=== PATIENT | female | born 1970 | race African-American/Black ===

== ENCOUNTER 2017-03-11 16:40 | Emergency (ER) | payer OTHER ==
--- NOTE | 2017-03-11 17:01 | PDOC ---
Rapid Medical Evaluation Time Seen by Provider: 03/11/17 16:55 Medical Evaluation: Allergies Allergy/AdvReac Type Severity Reaction Status Date / Time No Known Allergies Allergy Verified 10/19/15 11:03 03/11/17 16:55 The patient presents with a chief complaint of: Vaginal itching. Requesting STD testing after having unprotected sex. Had HIV testing last week which was negative I have performed a brief in-person evaluation of this patient; Pertinent physical exam findings: Stable vitals I have ordered the following: GC/Chlamydia, RPR, UA, UC, Urine preg The patient will proceed to the ED for further evaluation.
[2017-03-11 17:10] VITALS: BP 153/99; PULSE 81; TEMP 98.4; BMI 27.4
[2017-03-11 18:04] LABS: HCG,QUALITATIVE URINE NEGATIVE
[2017-03-11 18:06] LABS: URINE APPEARANCE CLOUDY; URINE BILIRUBIN NEGATIVE (NEGATIVE); URINE BLOOD NEGATIVE (NEGATIVE); URINE COLOR YELLOW; URINE GLUCOSE (UA) NEGATIVE (NEGATIVE); URINE KETONE NEGATIVE (NEGATIVE); URINE LEUK ESTERASE NEGATIVE (NEGATIVE); URINE NITRITE NEGATIVE (NEGATIVE); URINE PROTEIN NEGATIVE (NEGATIVE); URINE UROBILINOGEN NEGATIVE mg/dL (0.2-1.0)
--- NOTE | 2017-03-11 18:26 | PDOC ---
History of Present Illness - General Chief Complaint: Vaginal Sxs Stated Complaint: LT HAND PAIN Time Seen by Provider: 03/11/17 16:55 History Source: Patient Exam Limitations: No Limitations - History of Present Illness Initial Comments: CHIEF COMPLAINT: 46 y/o afebrile female c/o vaginal itching x 5 days. HISTORY OF PRESENT ILLNESS: The patient states her and her boyfriend of 8 months had sexual intercourse this past weekend after he had been away. The symptoms started after that and she admits the condom broke. She is concerned for STDs and would like to be treated. She denies f/c, abnormal vaginal discharge, dysuria, hematuria, abd pain, pelvic pain. Vital signs on arrival are within normal limits. REVIEW OF SYSTEMS: GENERAL/CONSTITUTIONAL: No fever/chills. No weakness. No weight change. GASTROINTESTINAL: No abd pain, pelvic pain, nausea, vomiting, diarrhea. GENITOURINARY: No dysuria, frequency, or change in urination. VAGINAL: vaginal itching MUSCULOSKELETAL: No joint or muscle swelling or pain. No neck or back pain. SKIN: No rash or easy bruising. PHYSICAL EXAM: GENERAL: The patient is awake, alert, and fully oriented, in no acute distress. ABDOMEN: Soft, non-distended, non-tender even to deep palpation, no hepatomegaly or splenomegaly, no masses. VAGINAL: Minimal amount of white curd like discharge seen in the vaginal canal. No external lesions or rashes SKIN: Warm, dry, normal turgor, no rashes or lesions noted. Past History - Past Medical History Allergies/Adverse Reactions: Allergies Allergy/AdvReac Type Severity Reaction Status Date / Time No Known Allergies Allergy Verified 03/11/17 16:59 Home Medications: Ambulatory Orders Miconazole Nitrate [Miconazole 7] 100 mg VG DAILY #7 supp.vag 03/11/17 Anemia: No Asthma: No Cancer: No Cardiac Disorders: No CVA: No COPD: No CHF: No DVT: No Dementia: No Diabetes: No GI Disorders: No Disorders: No HTN: No Hypercholesterolemia: No Liver Disease: No Seizures: No Thyroid Disease: No Other medical history: AV SHUNT (HYDROCEPHALUS) - Surgical History Abdominal Surgery: No Appendectomy: No Cardiac Surgery: No Cholecystectomy: No Lung Surgery: No Neurologic Surgery: Yes (SHUNT) Orthopedic Surgery: No - Immunization History Immunization Up to Date: Yes - Suicide/Smoking/Psychosocial Hx Smoking History: Never smoked Have you smoked in the past 12 months: No Number of Cigarettes Smoked Daily: 1 Information on smoking cessation initiated: No 'Breaking Loose' booklet given: 07/31/15 Hx Alcohol Use: No Drug/Substance Use Hx: No Substance Use Type: None Hx Substance Use Treatment: No *Physical Exam - Vital Signs Last Vital Signs Temp Pulse Resp BP Pulse Ox 98.4 F 81 17 153/99 100 03/11/17 17:00 03/11/17 17:00 03/11/17 17:00 03/11/17 17:00 03/11/17 17:00 ED Treatment Course - ADDITIONAL ORDERS Additional order review: Laboratory Results 03/11/17 17:46 Urine HCG, Qual Negative Medical Decision Making - Medical Decision Making A/P: 46 y/o female here for vaginal itching and concern for STDs. PAT LEDBETTER ordered UA/hcg, GC/chlamydia, RPR and HIV. She has a yeast infection. Will treat with rx for miconazole. Patient also wants to be treated empirically for STD. Informed her we will call with any abnormal results in 2-3 days. Instructed her to avoid sexual intercourse for 1 week and inform all sexual partners they should be treated. The patient verbalizes understanding of all instructions, has no further questions and is awaiting discharge. *DC/Admit/Observation/Transfer Diagnosis at time of Disposition: Vulval candidosis, Concern about sexually transmitted disease in female without diagnosis - Discharge Dispostion Condition at time of disposition: Good - Prescriptions Prescriptions: Miconazole Nitrate [Miconazole 7] 100 mg VG DAILY #7 supp.vag - Referrals Referrals: Jaquelin Benz MD [Primary Care Provider] - - Patient Instructions Printed Discharge Instructions: Facts About Sexually Transmitted Infections, DI for Vaginal Yeast Infection Additional Instructions: Discharge Instructions: -You were treated for an STD infection with IM ceftriaxone and PO azithromycin antibiotics -A prescription was sent to your pharmacy for treatment of a yeast infection -Please avoid sexual intercourse for 1 week and inform all sexual partners they should be tested -We will call you in 2-3 days if any of your tests come back positive Instrucciones de descarga: - Usted recibi tratamiento para rafa infeccin de ETS con ceftriaxona IM y antibiticos de azitromicina PO -Rafa receta fue enviada a [facility] para el tratamiento de rafa infeccin de levadura -Por favor, evite las relaciones sexuales abhijit 1 semana e informe a todas las parejas sexuales que deben someterse a prueba. -Llamaremos dentro de 2 o 3 cristobal si alguna de juliana pruebas es positiva Print Language: URDU - Post Discharge Activity
[2017-03-11] MEDS ORDERED: AZITHROMYCIN 1 GM PACKET PO ONE (18:35)
[2017-03-11] MEDS ORDERED: AZITHROMYCIN 500 MG TABLET ONE (18:41)
== END 2017-03-11 19:26 | disposition home or self-care (01) ==
LOC: JERFT 16:40 → JER 16:40 → JERFT 19:26
DX: B37.3 Candidiasis of vulva and vagina (principal); Z11.3 Encounter for screening for infections with a predominantly sexual mode of transmission
CPT/HCPCS: 36415; 81003; 84703; 86593; 87086; 87491; 87591; 99281-25

== ENCOUNTER 2017-04-07 08:23 | Emergency (ER) | payer OTHER ==
[2017-04-07 08:27] VITALS: BP 119/76; PULSE 71; TEMP 97.7; BMI 27.4
[2017-04-07] MEDS ORDERED: DIPHTH,PERTUSS(ACELL),TET 0.5 ML DISP.SYRIN IM ONE (09:10)
--- NOTE | 2017-04-07 09:11 | PDOC ---
History of Present Illness - General Chief Complaint: Injury Stated Complaint: FALL/ RT KNEE PAIN Time Seen by Provider: 04/07/17 08:44 History Source: Patient Exam Limitations: No Limitations - History of Present Illness Initial Comments: 04/07/17 09:07 CHIEF COMPLAINT:Accidental fall, Right knee pain and superficial skin avulsion HISTORY OF PRESENT ILLNESS: Patient is a 46-year-old female, denies any significant medical history currently on no medication reports falling on . Patient reports using an ointment to the area and applying an opened antibiotic pill and applying the powder to the wound. With throbbing pain. No edema no deformity. REVIEW OF SYSTEMS: GENERAL: Afebrile, A&O x3 RESPIRATORY: No cough, wheezing, or hemoptysis. CARDIAC: No CP or SOB MUSCULOSKELETAL: Pain to [ right] [anterior] knee SKIN : No erythema, no edema, no bruising, no deformity. There is a 3 cm x 3 cm superficial skin avulsion to right anterior knee NEUROLOGICAL: Denies any numbness or tingling. PHYSICAL EXAM: GENERAL: The patient is awake, alert, and fully oriented, in no acute distress. HEAD: Normal with no signs of trauma. RESPIRATORY: Lungs clear bilaterally no rhonchi, rales, or wheezes CARDIAC: S1-S2 audible, no murmur rub or gallop EXTREMITIES: Decreased range of motion to [right] knee related to pain, [no] fluid appreciated, no bulge sign. No pain to superior or inferior patella. Negative drop test. Negative posterior leg test. No joint laxity noted, no ecchymosis, no deformity, no abrasions ,no edema. +3 popliteal pulse. Negative Homans sign. No calf pain or tenderness, no erythema or edema. MUSCULOSKELETAL: No spinal point tenderness. SKIN: Warm, Dry, normal turgor, no erythema, [no] edema no bruising.There is a 3 cm x 3 cm superficial skin avulsion to right anterior knee, no surrounding erythema edema or warmth. Past History - Past Medical History Allergies/Adverse Reactions: Allergies Allergy/AdvReac Type Severity Reaction Status Date / Time No Known Allergies Allergy Verified 04/07/17 08:26 Home Medications: Ambulatory Orders Silver Sulfadiazine 1% Top Cr [Silvadene -] 1 applic TP BID #1 jar 04/07/17 Anemia: No Asthma: No Cancer: No Cardiac Disorders: No CVA: No COPD: No CHF: No DVT: No Dementia: No Diabetes: No GI Disorders: No Disorders: No HTN: No Hypercholesterolemia: No Liver Disease: No Seizures: No Thyroid Disease: No - Surgical History Abdominal Surgery: No Appendectomy: No Cardiac Surgery: No Cholecystectomy: No Lung Surgery: No Neurologic Surgery: Yes (SHUNT) Orthopedic Surgery: No - Immunization History Immunization Up to Date: Yes - Suicide/Smoking/Psychosocial Hx Smoking History: Never smoked Have you smoked in the past 12 months: No Number of Cigarettes Smoked Daily: 1 'Breaking Loose' booklet given: 07/31/15 Hx Alcohol Use: No Drug/Substance Use Hx: No Substance Use Type: None Hx Substance Use Treatment: No *Physical Exam - Vital Signs Last Vital Signs Temp Pulse Resp BP Pulse Ox 97.7 F 71 18 119/76 99 04/07/17 08:24 04/07/17 08:24 04/07/17 08:24 04/07/17 08:24 04/07/17 08:24 Medical Decision Making - Medical Decision Making 04/07/17 09:14 A/P: Patient with right knee wound sent for x-ray area cleansed with normal saline, will apply Silvadene Boostrix. 04/07/17 16:16 Noted with eschar. To wounds, significant will require debridement I have called Wound Care and advise me to apply bacitracin to wound, patient to follow- up at 9:30 AM tomorrow to see Dr. Saucedo for debridement. Bacitracin applied, instructions for care given to patient, she will follow-up as instructed x-rays negative for acute fracture. There is no surrounding edema or erythema, no streaking. *DC/Admit/Observation/Transfer Diagnosis at time of Disposition: Knee pain, right Open knee wound Qualifiers: Encounter type: initial encounter Laterality: right Qualified Code(s): S81.001A - Unspecified open wound, right knee, initial encounter - Discharge Dispostion Disposition: HOME Condition at time of disposition: Stable Admit: No - Prescriptions Prescriptions: Silver Sulfadiazine 1% Top Cr [Silvadene -] 1 applic TP BID #1 jar - Referrals - Patient Instructions Printed Discharge Instructions: DI for Wound Infection Additional Instructions: Please 9 30 a.m. tomorrow in wound care on the first floor of the [facility]. [phone] - Post Discharge Activity Forms/Work/School Notes: Back to Work
[2017-04-07] MEDS ORDERED: BACITRACIN 15 GM TUBE TOPICAL OINTMENT ONE (10:34)
== END 2017-04-07 11:18 | disposition home or self-care (01) ==
LOC: JERFT 08:23
PROC: 3E0234Z Introduction of Serum, Toxoid and Vaccine into Muscle, Percutaneous Approach (ICD-10-PCS; principal; 2017-04-07)
DX: S81.001A Unspecified open wound, right knee, initial encounter (principal); S81.011A Laceration without foreign body, right knee, initial encounter; W19.XXXA Unspecified fall, initial encounter; Y93.89 Activity, other specified; Y92.89 Other specified places as the place of occurrence of the external cause; Y99.8 Other external cause status
CPT/HCPCS: 73562-TC-RT-FY; 90471; 90715; 99282-25

== ENCOUNTER 2018-01-26 19:31 | Emergency (ER) | payer OTHER ==
[2018-01-26 19:46] VITALS: BP 137/83; PULSE 82; TEMP 98.6; BMI 31.5
--- NOTE | 2018-01-26 19:46 | PDOC ---
Rapid Medical Evaluation Medical Evaluation: Allergies Allergy/AdvReac Type Severity Reaction Status Date / Time No Known Allergies Allergy Verified 04/07/17 08:26 01/26/18 19:38 I have performed a brief in-person evaluation of this patient. The patient presents with a chief complaint of: L shoulder/arm pain x 1 week, worse w/ movement and with palpation. No trauma or obvious inciting factors. No CP or SOB. No sig hx. Pertinent physical exam findings: pain to L shoulder w/ movement I have ordered the following:nothing The patient will proceed to the ED for further evaluation Discharge Disposition - Diagnosis Shoulder pain, left Qualifiers: Chronicity: acute Qualified Code(s): M25.512 - Pain in left shoulder - Referrals Referrals: Ama Diaz MD [Primary Care Provider] - - Patient Instructions - Post Discharge Activity
--- NOTE | 2018-01-26 20:20 | PDOC ---
History of Present Illness - General Chief Complaint: Pain, Acute Stated Complaint: LEFT ARM PAIN,NUMBNESS Time Seen by Provider: 01/26/18 19:45 - History of Present Illness Initial Comments: 01/26/18 20:17 47-year-old female without comorbidities presents for evaluation of atraumatic onset of left shoulder pain 1 week Past History - Past Medical History Allergies/Adverse Reactions: Allergies Allergy/AdvReac Type Severity Reaction Status Date / Time No Known Allergies Allergy Verified 01/26/18 19:42 Home Medications: Ambulatory Orders Cyclobenzaprine HCl [Flexeril 10 mg] 10 mg PO HS PRN #10 tablet 01/26/18 Ibuprofen [Motrin -] 600 mg PO TID #30 tablet 01/26/18 Anemia: No Asthma: No Cancer: No Cardiac Disorders: No CVA: No COPD: No CHF: No DVT: No Dementia: No Diabetes: No GI Disorders: No Disorders: No HTN: No Hypercholesterolemia: No Liver Disease: No Seizures: No Thyroid Disease: No - Surgical History Abdominal Surgery: No Appendectomy: No Cardiac Surgery: No Cholecystectomy: No Lung Surgery: No Neurologic Surgery: Yes (SHUNT) Orthopedic Surgery: No - Immunization History Immunization Up to Date: Yes - Suicide/Smoking/Psychosocial Hx Smoking History: Never smoked Have you smoked in the past 12 months: No Number of Cigarettes Smoked Daily: 1 'Breaking Loose' booklet given: 07/31/15 Hx Alcohol Use: No Drug/Substance Use Hx: No Substance Use Type: None Hx Substance Use Treatment: No Review of Systems - Review of Systems Constitutional: No: Fever Musculoskeletal: Yes: Joint Pain *Physical Exam - Vital Signs Last Vital Signs Temp Pulse Resp BP Pulse Ox 98.6 F 82 16 137/83 100 01/26/18 19:43 01/26/18 19:43 01/26/18 19:43 01/26/18 19:43 01/26/18 19:43 - Physical Exam Comments: 01/26/18 20:17 Left shoulder skin color and temperature are normal range of motion is full with pain at terminal ranges. She is unable to comply with supraspinatus isolation rotator cuff testing strength testing or impingement maneuvers. She has no gross sensory motor deficit she has full passive range of motion without discomfort no evidence of capsulitis or septic arthritis she is neurovascularly intact Moderate Sedation - Procedure Monitoring Vital Signs: Procedure Monitoring Vital Signs Temperature 98.6 F 01/26/18 19:43 Pulse Rate 82 01/26/18 19:43 Respiratory Rate 16 01/26/18 19:43 Blood Pressure 137/83 01/26/18 19:43 O2 Sat by Pulse Oximetry (%) 100 01/26/18 19:43 *DC/Admit/Observation/Transfer Diagnosis at time of Disposition: Shoulder pain, left Qualifiers: Chronicity: acute Qualified Code(s): M25.512 - Pain in left shoulder - Discharge Dispostion Disposition: HOME Condition at time of disposition: Stable Decision to Admit order: No - Referrals Referrals: Ama Diaz MD [Primary Care Provider] - Stephon Suarez MD [Staff Physician] - - Patient Instructions Printed Discharge Instructions: Shoulder Tendinopathy, DI for Shoulder Pain Additional Instructions: Emergency room should symptoms worsen or go on resolve. Please take the anti- inflammatory as directed one tablet 3 times a day with food discontinued medication of bothers her stomach. The muscle relaxants will make you sleepy 20 4 bedtime and we'll help her pain. Follow-up with orthopedic surgery in 2-3 days for further evaluation and treatment options. If you need additional medication he can take Tylenol as directed no more anti-inflammatories other than what is prescribed - Post Discharge Activity
== END 2018-01-26 20:21 | disposition home or self-care (01) ==
LOC: JERFT 19:31
DX: M79.602 Pain in left arm (principal)
CPT/HCPCS: 99281-25

== ENCOUNTER 2018-03-11 14:34 | Emergency (ER) | payer OTHER ==
--- NOTE | 2018-03-11 15:27 | PDOC ---
Rapid Medical Evaluation Time Seen by Provider: 03/11/18 15:24 Medical Evaluation: Allergies Allergy/AdvReac Type Severity Reaction Status Date / Time No Known Allergies Allergy Verified 01/26/18 19:42 03/11/18 15:25 Pt c/o: rt ankle injury, slipped in rain yesterday Pt on brief exam: + edema and tenderness to lateral aspect of rt malleolus Patient ordered for: rt ankle xray Pt to proceed to the ED Discharge Disposition - Diagnosis Ankle pain - Referrals - Patient Instructions - Post Discharge Activity
[2018-03-11 15:31] VITALS: BP 118/72; PULSE 70; TEMP 98.1; BMI 28.6
[2018-03-11] MEDS ORDERED: IBUPROFEN 600 MG TABLET (FP) PO ONE ×2 (15:43→15:48)
--- NOTE | 2018-03-11 16:12 | PDOC ---
History of Present Illness - General Chief Complaint: Injury Stated Complaint: PAIN Time Seen by Provider: 03/11/18 15:24 History Source: Patient Exam Limitations: No Limitations - History of Present Illness Initial Comments: 03/11/18 16:10 47 yo F w/ no sig PMHx comes in c/o R ankle pain s/p slipping in the rain yesterday and twisting her ankle, no other complaints today, no numbness/ tingling anywhere, no sensory deficits, no knee pain, no back pain, no other injuries. Denies LOC, no headache. Past History - Past Medical History Allergies/Adverse Reactions: Allergies Allergy/AdvReac Type Severity Reaction Status Date / Time No Known Allergies Allergy Verified 03/11/18 15:28 Home Medications: Ambulatory Orders Ibuprofen 600 mg PO TID 3 Days #15 tablet 03/11/18 Anemia: No Asthma: No Cancer: No Cardiac Disorders: No CVA: No COPD: No CHF: No DVT: No Dementia: No Diabetes: No GI Disorders: No Disorders: No HTN: No Hypercholesterolemia: No Liver Disease: No Seizures: No Thyroid Disease: No - Surgical History Abdominal Surgery: No Appendectomy: No Cardiac Surgery: No Cholecystectomy: No Lung Surgery: No Neurologic Surgery: Yes (SHUNT) Orthopedic Surgery: No - Immunization History Immunization Up to Date: Yes - Suicide/Smoking/Psychosocial Hx Smoking History: Never smoked Have you smoked in the past 12 months: No Number of Cigarettes Smoked Daily: 1 Information on smoking cessation initiated: No 'Breaking Loose' booklet given: 07/31/15 Hx Alcohol Use: No Drug/Substance Use Hx: No Substance Use Type: None Hx Substance Use Treatment: No Review of Systems - Review of Systems Able to Perform ROS?: Yes Constitutional: No: Chills, Fever, Malaise, Night Sweats HEENTM: No: Eye Pain, Recent change in vision, Throat Pain Respiratory: No: Cough, Shortness of Breath Cardiac (ROS): No: Chest Pain, Palpitations, Chest Tightness ABD/GI: No: Diarrhea, Nausea, Vomiting, Abdominal cramping : No: Dysuria, Hematuria Musculoskeletal: No: Back Pain Integumentary: No: Rash Neurological: No: Headache, Numbness, Dizziness Psychiatric: No: Change in Appetite Endocrine: No: Unexplained Weight Loss *Physical Exam - Vital Signs Last Vital Signs Temp Pulse Resp BP Pulse Ox 98.1 F 70 16 118/72 99 03/11/18 15:28 03/11/18 15:28 03/11/18 15:28 03/11/18 15:28 03/11/18 15:28 - Physical Exam General Appearance: Yes: Nourished. No: Apparent Distress HEENT: positive: ARSLAN, Normal ENT Inspection, Normal Voice. negative: Pale Conjunctivae, Scleral Icterus (R), Scleral Icterus (L) Neck: positive: Supple. negative: Decreased range of motion, Tender midline Respiratory/Chest: negative: Respiratory Distress, Accessory Muscle Use Cardiovascular: positive: Regular Rate Extremity: positive: Normal Capillary Refill, Normal Inspection, Other (RLE with R ankle swelling and tenderness on palpation of the ATFL and deltoid ligaments, (+)R lateral malleolus tenderness. Equal pulses bilaterally, 4/5 strength due to pain, good sensory function, NVI, good cap refill. R knee without swelling, FROM, 5/5 strength) Integumentary: positive: Normal Color, Dry. negative: Jaundice, Rash Neurologic: positive: Fully Oriented, Alert, Normal Mood/Affect Moderate Sedation - Procedure Monitoring Vital Signs: Procedure Monitoring Vital Signs Temperature 98.1 F 03/11/18 15:28 Pulse Rate 70 03/11/18 15:28 Respiratory Rate 16 03/11/18 15:28 Blood Pressure 118/72 03/11/18 15:28 O2 Sat by Pulse Oximetry (%) 99 03/11/18 15:28 ED Treatment Course - Medications Given in the ED: ED Medications Discontinued Medications Generic Name Dose Route Start Last Admin Trade Name Freq PRN Reason Stop Dose Admin Ibuprofen 600 mg 03/11/18 15:43 03/11/18 15:47 Motrin - PO 03/11/18 15:44 600 mg ONCE ONE Administration Medical Decision Making - Medical Decision Making 03/11/18 16:15 47 yo w/ ankle injury R/O fracture. LIkely ligamentous injury 03/11/18 17:06 Pt placed in an aircast. GIven ortho follow up RICE Crutches given Return for worsening/concerning symptoms Pt verbalizes understanding and agrees with plan *DC/Admit/Observation/Transfer Diagnosis at time of Disposition: Ankle injury Qualifiers: Encounter type: initial encounter Laterality: right Qualified Code(s): S99.911A - Unspecified injury of right ankle, initial encounter - Discharge Dispostion Disposition: HOME Condition at time of disposition: Stable Decision to Admit order: No - Referrals Referrals: Dennys Gonzalez DO [Staff Physician] - - Patient Instructions Printed Discharge Instructions: DI for Ankle Sprain Additional Instructions: Apply ice, compression, elevation as instructed. FOllow u with the orthopedic doctor, call for an appointment with Dr. Gonzalez. Return for worsening/concerning symptoms including numbness/tingling, change in sensation - Post Discharge Activity
== END 2018-03-11 17:24 | disposition home or self-care (01) ==
LOC: JERFT 14:34
PROC: 2W3QX1Z Immobilization of Right Lower Leg using Splint (ICD-10-PCS; principal; 2018-03-11)
DX: S99.811A Other specified injuries of right ankle, initial encounter (principal); W01.0XXA Fall on same level from slipping, tripping and stumbling without subsequent striking against object, initial encounter; Y93.89 Activity, other specified; Y92.89 Other specified places as the place of occurrence of the external cause; Y99.8 Other external cause status
CPT/HCPCS: 29515; 73610-TC-RT-FY; 99281-25

== ENCOUNTER 2020-06-19 16:05 | Emergency (ER) | payer OTHER ==
[2020-06-19 16:15] VITALS: TEMP 98; BMI 31.2
[2020-06-19] MEDS ORDERED: KETOROLAC TROMETHAMINE 30 MG/1 ML VIAL IM ONE (17:34)
[2020-06-19] MEDS ORDERED: KETOROLAC TROMETHAMINE 30 MG/1 ML VIAL ONE (17:58)
[2020-06-19 18:19] VITALS: BP 136/89; PULSE 89
== END 2020-06-19 18:19 | disposition home or self-care (01) ==
LOC: JER 16:05
PROC: 3E0233Z Introduction of Anti-inflammatory into Muscle, Percutaneous Approach (ICD-10-PCS; principal; 2020-06-19)
DX: M71.22 Synovial cyst of popliteal space [Baker], left knee (principal)
CPT/HCPCS: 73562-TC-LT-FY; 93971-TC; 99284-25